=== PATIENT | female | born 1990 | race Caucasian/White ===

== ENCOUNTER 2024-07-10 22:06 | Emergency (ER) | payer BC, SELFPAY ==
[2024-07-10 22:08] VITALS: BP 180/109
[2024-07-10 22:23] VITALS: BP 163/93
--- NOTE | 2024-07-10 22:38 | ED.GENMED ---
History of Present Illness
General
Chief Complaint: Blood Pressure Problem
Source: patient
Time Seen by Provider: 07/10/24 22:19
History of Present Illness
History of Present Illness:
34-year-old female with past medical history of asthma presenting to the emergency department for evaluation of elevated blood pressure stating that [facility] and while getting tested there they noticed she had elevated
blood pressure. They recommended patient go to the ER for further evaluation but patient decided against this. The clinic followed up with her today and patient got scared after they thought her blood pressure was at a range where she could have a
stroke so she decided to come to the ER this evening. Patient has no complaints at this time and is otherwise denying any chest pain, shortness of breath, abdominal pain, nausea, vomiting, headaches, visual changes, focal weakness or numbness or
any other concerns.
Past History
Past History
ED Past Medical History: Asthma
ED Past Surgical History: None
Social History
Tobacco: Vaping
Alcohol: Occasional
Drug: None
Personal: Single
Living: alone
Employment: Employed
Review of Systems
Review of Systems
All Other Systems: ROS reviewed and negative except as documented in HPI and ROS
Phy Exam
Physical Exam
Physical Exam:
GENERAL: Alert , in no apparent distress
EYE: conjunctiva clear
NECK: Supple
ENT: o/p clr, mmm.
CARDIAC: Regular rate and rhythm
LUNGS: Clear breath sounds bilaterally, no acute respiratory distress, no wheezes/rales/rhonchi
NEUROLOGICAL: Alert and oriented
SKIN: Warm and dry, skin intact.
MUSCULOSKELETAL: well perfused.
PSYCH: Normal and appropriate interaction.
Scores
Heart Failure Risk
Heart Failure Risk Score: Not Applicable
Heart Score for Chest Pain Patients
STEMI patient?: Not applicable
Withdrawal Assessment of Alcohol
Withdrawal Assessment Completed?: Not applicable
Course
Orders/Labs/Results
Orders:
Orders
07/10/24 22:21
Electrocardiogram (*1) Urgent
Reason for Study: Palpitations
EKG- Treatment ONCE
07/10/24 22:36
Complete Blood Count/With Diff Urgent
Comprehensive Metabolic Panel Urgent
Abnormal Lab Results
07/10/24
22:36
WBC 13.8 H 10^3/uL
(4.8-10.8)
MCH 32.4 H pg
(27.0-31.0)
Abs Immat Gran (auto) 0.1 H 10^3/uL
(0-0.05)
Absolute Neuts (auto) 8.0 H 10^3/uL
(1.4-6.5)
Absolute Lymphs (auto) 4.6 H 10^3/uL
(1.2-3.4)
Absolute Monos (auto) 0.8 H 10^3/uL
(0.1-0.6)
07/10/24 22:36
07/10/24 22:36
Vital Signs
Initial and Last Documented VS:
Initial Vital Signs
Temp Pulse Resp BP Pulse Ox
98.4 F 104 20 180/109 98
07/10/24 22:08 07/10/24 22:08 07/10/24 22:08 07/10/24 22:08 07/10/24 22:08
Last Documented Vital Signs
Temp Pulse Resp BP Pulse Ox
98.4 F 104 20 163/93 96
07/10/24 22:08 07/10/24 22:08 07/10/24 22:08 07/10/24 22:23 07/10/24 22:45
MDM/Problems Addressed
Differential Diagnosis Includes:
Asymptomatic hypertension, I do not have concern for ACS nor acute neurologic complication, will check labs to evaluate renal function
MDM/Problems Addressed:
34-year-old female presenting to the ER for evaluation of elevated blood pressure that was noticed yesterday while getting workup [facility], today blood pressure remained elevated. Patient asymptomatic on arrival here. Blood pressure 163/93
during my examination. Will check screening labs and EKG. Patient has a follow-up visit already scheduled with her primary care physician tomorrow morning. We discussed dietary modification and exercise as early treatment for this. Given she has
close follow-up with primary care provider will defer any further treatment to PCP to discuss with the patient.
*Pulse Oximetry
Patient hypoxic: no
*EKG
Heart Rate: 69
Rate: normal
Rhythm: sinus
Ischemia: no ischemia
*Reference Archivist Interpretation
Rate: normal
Rhythm: sinus
*Critical Care Note
Total Time (30-74mins, 75-104mins- exclusive of procedures): Not Applicable
ED Attending Note
-
Portions of this chart may have been created with voice recognition software.� Occasional wrong word or��sound alike� substitutions may have occurred due to the inherent limitations of voice recognition software.
Discharge Plan
Departure
Patient Disposition: Home (Routine Discharge)
Date of Disposition: 07/10/24
Time of Disposition: 23:49
Patient with high blood pressure during this ER visit?: Yes
Discharge Problem:
Elevated blood pressure reading
Instructions: High Blood Pressure (DC)
Referrals:
Real Bradley MD [Family Provider] -
Interventions
Interventions:
*Risk Screen - Suicide Last Done: 07/10/24 22:08
*General Assessment Last Done: 07/10/24 23:15
*Neglect/Abuse Screening Last Done: 07/10/24 22:08
*Nursing Disposition Last Done: 07/11/24 00:07
ED- Cardiac Assessment Last Done: 07/10/24 23:15
ED- Neurological Assessment Last Done: 07/10/24 23:15
ED- Pulmonary Assessment Last Done: 07/10/24 23:15
Discharge Date and Time
Discharge Date/Time: 07/11/24 00:07
Print Language: [id number]
[2024-07-10 22:55] LABS: % Basophils 0.6 % (0-2); % Eosinophils 2.1 % (0-6); % Immature Granulocytes 0.4 % (0-0.5); % Lymphocytes 32.9 % (20.5-51.1); % Monocytes 5.9 % (1.7-9.3); % Neutrophils 58.1 % (42.2-75.2); Absolute Basophils 0.1 10^3/uL (0-0.2); Absolute Eosinophils 0.3 10^3/uL (0-0.7); Absolute Immature Granulocytes 0.1 10^3/uL (0-0.05); Absolute Lymphocytes 4.6 10^3/uL (1.2-3.4); Absolute Monocytes 0.8 10^3/uL (0.1-0.6); Hematocrit 40.9 % (37.0-47.0); Hemoglobin 13.9 g/dL (12.0-16.0); Mean Corpuscular Hgb 32.4 pg (27.0-31.0); Mean Corpuscular Volume 95.3 fL (81.0-99.0); Mean Platelet Volume 9.1 fL (7.4-10.4); Nucleated Red Blood Cells % 0 %; Platelet Count 303 10^3/uL (130-400); Red Blood Cell Count 4.29 10^6/uL (4.20-5.40); Red Cell Dist. Width 12.3 % (11.5-14.5); White Blood Cell Count 13.8 10^3/uL (4.8-10.8)
[2024-07-10 23:10] LABS: ALT (SGPT) 26 U/L (0-35); AST (SGOT) 22 U/L (14-36); Albumin 4.5 g/dl (3.5-5.0); Alkaline Phosphatase 82 U/L (38-126); Blood Urea Nitrogen 15 mg/dl (7-17); Calcium 9.1 mg/dl (8.4-10.2); Carbon Dioxide 23 mmol/L (22-30); Glucose 97 mg/dl (70-99); Total Bilirubin 0.4 mg/dl (0.2-1.3); Total Protein 7.1 g/dl (6.3-8.2); eGFR > 60.00
[2024-07-11 00:01] LABS: Chloride 101 mmol/L (98-107); Potassium 3.8 mmol/L (3.5-5.1); Sodium 137 mmol/L (135-145)
== END 2024-07-11 00:07 | disposition home or self-care (01) ==
LOC: EMR 22:06
PROVIDERS: Physician Assistant Medical; EMERGENCY PHYSICIAN Student in an Organized Health Care Education/Training Program; FAMILY PHYSICIAN Family Medicine
DX: R03.0 Elevated blood-pressure reading, without diagnosis of hypertension (principal); J45.909 Unspecified asthma, uncomplicated; F17.290 Nicotine dependence, other tobacco product, uncomplicated
CPT/HCPCS: 99283; 80053; 85025; 93005